=== PATIENT | female | born 1965 | race American Indian/Alaskan Native ===

== ENCOUNTER 2016-03-21 10:02 | Day surgery (SDC) | payer MEDICAID ==
[~2016-03-21 10:02] MED LIST: XYLOCAINE 1%/ EPI 1:100,000 INFILTRATI ONE
--- NOTE | 2016-03-21 11:56 | Anesthesia Day of Surgery ---
Anesthesia Day of Surgery - Day of Surgery Patient Examined: Yes Patient H&P Reviewed: Yes Patient is NPO: Yes
[2016-03-21] MEDS ORDERED: MORPHINE IV PRN (11:57)
--- NOTE | 2016-03-21 11:57 | Anesthesia Consultation ---
Anesthesia Consult and Med Hx Date of service: 03/21/16 - Airway Anesthetic Teeth Evaluation: Good ROM Head & Neck: Adequate Mental/Hyoid Distance: Adequate Mallampati Class: Class II Intubation Access Assessment: Probably Good - Pulmonary Exam CTA: Yes - Cardiac Exam Cardiac Exam: RRR - Pre-Operative Health Status ASA Pre-Surgery Classification: ASA2 Proposed Anesthetic Plan: General - Pulmonary Hx Smoking: No Hx Asthma: Yes Hx Sleep Apnea: Yes (DX SLEEP APNEA- USES CPAP.) - Cardiovascular System Hx Hypertension: No Hx Heart Murmur: No - Gastrointestinal Hx Gastroesophageal Reflux Disease: No - Other Systems Hx Cancer: No Hx Obesity: Yes - Additional Comments Anesthesia Medical History Comments: NAC
[2016-03-21] MEDS ORDERED: mitoMYcin 0.02% Opth Soln *OR USE ONLY OP ONE (12:00)
[2016-03-21] MEDS ORDERED: TETRACAINE 0.5% OU PRN (13:34)
[2016-03-21] MEDS ORDERED: VERSED ONE (13:36)
[2016-03-21] MEDS ORDERED: SUBLIMAZE ONE (13:36)
[2016-03-21] MEDS: VIGAMOX OD SCH ×3 (13:45→13:55)
[2016-03-21] MEDS ORDERED: XYLOCAINE 1%/ EPI 1:100,000 INFILTRATI ONE ×2 (14:30→14:32)
[2016-03-21] MEDS ORDERED: mitoMYcin 0.02% Opth Soln *OR USE ONLY OD ONE (14:51)
--- NOTE | 2016-03-21 15:06 | Operative Report ---
Operative Report Operative Report: PREOPERATIVE DIAGNOSIS: Pterygium with visual distortion, right eye POSTOPERATIVE DIAGNOSIS: Pterygium with visual distortion, right ___eye OPERATIVE PROCEDURE: Excision of pterygium with mitomycin C and amniotic graft membrane right eye SURGEON: Scarlet Vale M.D. [employer]RO[employer] REPRESENTATIVE SURGEON: davida ANESTHESIA: Monitored anesthesia care ASSISTANT DIRECTOR OF ADMISSIONS: COMPLICATIONS: None ALLERGIES: NKDA PROGNOSIS: Excellent INDICATIONS FOR SURGERY: Distortion of vision from the lesion. Without treatment , permanent visual loss is expected. OPERATIVE REPORT: The patient was taken into the preoperative area and then sedated and monitored by Anesthesia. The patient was prepped by applying a Betadine scrub to the periorbital area, the adjacent cheek, and the forehead. The prepped areas were dried with sterile gauze. The patient was draped, and a speculum was placed between the eyelids. 2% lidocaine was injected below the rozina of the pterygium. A cut-down was made through the body of the pterygium to bare sclera. The dissection was then carried towards the limbus, elevating up the pterygium. Moderate bleeding was encountered and treated with cautery. Once the dissection was taken to the limbus, the head of the pterygium was dissected off the cornea with a Tooke knife. The pterygium was densely scarred into the underlying stroma, making the dissection process difficult to perform. A superficial dissection plane was made in a few areas. The mass of fibrous growth was then excised from the limbus. A derrick bur on a high-speed drill was used to smooth the area of the cornea where the pterygium was removed. This was done in order to leave the tissue smooth and minimize the chance of recurrence. A rough limbal surface increases the risks of irritation, inflammation, and the possibility of postoperative recurrence in the eye. The limbal area was smoothed with the derrick bur, and care was taken not to remove too much tissue, leaving the cornea ectatic. After the scar tissue was removed, Mitomycin-C was painted on the eye with Weck- santino sponges and immediately irrigated off. This process was repeated twice. The irrigation was done liberally to prevent any Mitomycin-C contamination to the rest of the field and the eye. The cornea was irrigated with balanced salt solution. Once the pterygium was excised and the cornea smoothed, cautery was used to control any bleeding in the bed of bare sclera. The peripheral edges of remaining conjunctiva around the bare sclera had its edges undermined slightly to allow it to be fixed to the underlying sclera when the tissue adhesive would be applied. Calipers were then used to measure the width and length of the area of bare sclera. After marking the tips of the calipers, they were used to john the amniotic graft. Scissors were next used to first undermine and then excise the graft. Fine-tooth forceps were used carefully to elevate the graft and moved to the area of the bare sclera. It was moved carefully to make sure that first of all the epithelial side remained upward . After the graft was found to be suitable for the area to be covered, it was temporarily moved off the bare sclera and Tisseel tissue adhesive was applied in its two components as separate stages over the area of bare sclera. The graft was placed back in position and its edges were first pushed down 360 to allow firm fixation. The central area was also pushed down with firm pressure from a flat surfaced instrument. Next the edges of the previously undermined adjacent conjunctiva were pushed down to allow firm fixation. The flap was allowed to stay unmanipulated for ten minutes prior to removing the lid speculum. MEDICATIONS APPLIED AT END OF SURGERY: Pred forte1% was placed onto the eye fallowed by the application of a bandage contact lens. DISCHARGE SUMMARY: The patient was released in stable condition. The patient and those with the patient were given a written sheet of postoperative instructions and counseling on any abnormal laboratory studies. They are to call immediately for difficulties.
[2016-03-21] MEDS ORDERED: TYLENOL #3 PO PRN (15:22)
[2016-03-21] MEDS ORDERED: PRED FORTE 1% OD SCH (15:30)
[2016-03-21 16:02] VITALS: BP 98/61
== END 2016-03-21 15:37 | disposition home or self-care (01) ==
LOC: OR 10:02
DX: H11.001 Unspecified pterygium of right eye (principal); M19.90 Unspecified osteoarthritis, unspecified site; J45.909 Unspecified asthma, uncomplicated; G47.33 Obstructive sleep apnea (adult) (pediatric); E66.9 Obesity, unspecified; Z68.37 Body mass index [BMI] 37.0-37.9, adult; Z96.641 Presence of right artificial hip joint; Z90.710 Acquired absence of both cervix and uterus; Z90.49 Acquired absence of other specified parts of digestive tract
CPT/HCPCS: 65426; 88304; C9250; J2250; J3010; J7315; V2790

== ENCOUNTER 2020-10-25 13:29 | Outpatient (CLI) | payer MEDICAID ==
--- NOTE | 2020-10-25 14:59 | XRay Report ---
XR knees standing AP Bilateral INDICATION / CLINICAL INFORMATION: PAIN IN UNSPECIFIED KNEE. COMPARISON: None available. FINDINGS: BONES/JOINT(S): No acute fracture or subluxation. Mild tricompartmental DJD bilaterally. SOFT TISSUES: No significant abnormality. ADDITIONAL FINDINGS: None. Signer Name: Bony Rajput MD Signed: 10/25/2020 2:52 PM Workstation Name: [id number]
== END 2020-10-25 13:30 | disposition home or self-care (01) ==
LOC: XRAY 13:29
PROVIDERS: ATTEND Orthopaedic Surgery
DX: M17.0 Bilateral primary osteoarthritis of knee (principal)
CPT/HCPCS: 73565